=== PATIENT | female | born 1985 | race Caucasian/White ===

== ENCOUNTER 2017-01-22 14:36 | Emergency (ER) | payer SELFPAY ==
[2017-01-22 16:01] VITALS: BP 121/71
--- NOTE | 2017-01-22 16:06 | EDM.PDOC ---
ED HPI GENERAL MEDICAL PROBLEM - General Chief Complaint: ENT Problem Stated Complaint: SOMETHING STUCK IN THROAT [id number] Time Seen by Provider: 01/22/17 15:59 Source of Information: Reports: Patient History Limitations: Reports: No Limitations - History of Present Illness INITIAL COMMENTS - FREE TEXT/NARRATIVE: 31 yo white female c/o that she ate chicken @ 12 noon and feels that it is stuck. Pt. states she tried to gag w/o results and she drank 12 ounces of water w/o problem. No N&V and No Drooling Onset: Today Onset Date: 01/22/17 Onset Time: 12:00 Duration: Hour(s): Location: Reports: Other (throat) Quality: Reports: Dull, Pressure Severity: Mild Improves with: Reports: None Worsens with: Reports: None Associated Symptoms: Reports: No Other Symptoms - Related Data Allergies Allergy/AdvReac Type Severity Reaction Status Date / Time No Known Allergies Allergy Verified 01/22/17 15:09 Home Meds: Home Meds Acetaminophen [Tylenol] 650 mg PO ASDIRECTED PRN 06/29/15 [History] Ibuprofen 800 mg PO ASDIRECTED PRN 06/29/15 [History] Past Medical History HEENT History: Reports: Impaired Vision Other HEENT History: wears contacts Cardiovascular History: Reports: None Respiratory History: Reports: None Gastrointestinal History: Reports: None Genitourinary History: Reports: None [employer] History: Reports: None Musculoskeletal History: Reports: None Neurological History: Reports: None Psychiatric History: Reports: None Endocrine/Metabolic History: Reports: None Hematologic History: Reports: None Immunologic History: Reports: None Oncologic (Cancer) History: Reports: None Dermatologic History: Reports: None - Infectious Disease History Infectious Disease History: Reports: Chicken Pox - Past Surgical History Head Surgeries/Procedures: Reports: None Female Surgical History: Reports: D&C Social & Family History - Tobacco Use Smoking Status *Q: Current Some Day Smoker Years of Tobacco use: 10 Packs/Tins Daily: 0.5 Month Tobacco Last Used: may Second Hand Smoke Exposure: No - Caffeine Use Caffeine Use: Reports: Coffee, Soda - Recreational Drug Use Recreational Drug Use: No ED ROS GENERAL - Review of Systems Review Of Systems: See Below Constitutional: Reports: No Symptoms HEENT: Reports: No Symptoms Respiratory: Reports: No Symptoms Cardiovascular: Reports: No Symptoms Endocrine: Reports: No Symptoms GI/Abdominal: Reports: Other (sensation of food stuck in esophagus) : Reports: No Symptoms Musculoskeletal: Reports: No Symptoms Skin: Reports: No Symptoms Neurological: Reports: No Symptoms Psychiatric: Reports: No Symptoms Hematologic/Lymphatic: Reports: No Symptoms Immunologic: Reports: No Symptoms ED EXAM, GI/ABD - Physical Exam Exam: See Below Exam Limited By: No Limitations General Appearance: Alert, WD/WN, No Apparent Distress Eyes: Bilateral: EOMI Ears: Normal External Exam Nose: Normal Inspection Throat/Mouth: Normal Inspection Head: Atraumatic Neck: Normal Inspection Respiratory/Chest: No Respiratory Distress, Lungs Clear Cardiovascular: Normal Peripheral Pulses GI/Abdominal Exam: Normal Bowel Sounds, Soft, Non-Tender, No Organomegaly, No Distention Extremities: Normal Inspection Neurological: Alert, Oriented, CN II-XII Intact Psychiatric: Normal Affect, Normal Mood Skin Exam: Warm, Dry, Intact Lymphatic: No Adenopathy Course - Vital Signs Last Recorded V/S: Last Vital Signs Temp 36.2 C 01/22/17 16:00 Pulse 92 01/22/17 16:00 Resp 18 01/22/17 16:00 BP 121/71 01/22/17 16:00 Pulse Ox 100 01/22/17 16:00 - Orders/Labs/Meds Meds: Medications Discontinued Medications Generic Name Dose Route Start Last Admin Trade Name Krish PRN Reason Stop Dose Admin Al Hydroxide/Mg Hydroxide 30 ml 01/22/17 16:07 01/22/17 16:16 Gi Cocktail PO 01/22/17 16:08 30 ml ONETIME ONE Administration Glucagon 1 mg 01/22/17 16:58 01/22/17 17:04 Glucagen IVPUSH 01/22/17 16:59 1 mg ONETIME ONE Administration Departure - Departure Time of Disposition: 17:16 Disposition: Home, Self-Care 01 Condition: Good Clinical Impression: Food impaction of esophagus Qualifiers: Encounter type: initial encounter Qualified Code(s): T18.128A - Food in esophagus causing other injury, initial encounter - Discharge Information Forms: ED Department Discharge Additional Instructions: Continue Liquid diet only for the next 24 hours Please Drink A Carbonated Beverage F/U w/ PCP
[2017-01-22] MEDS ORDERED: GI Cocktail Oral Solution 30 ML PO ONE (16:07)
[2017-01-22] MEDS ORDERED: Glucagon,Human Recombinant 1 MG Vial IVPUSH ONE (16:58)
== END 2017-01-22 17:31 | disposition home or self-care (01) ==
LOC: DL.ED 14:36
DX: T18.128A Food in esophagus causing other injury, initial encounter (principal); F17.210 Nicotine dependence, cigarettes, uncomplicated; X58.XXXA Exposure to other specified factors, initial encounter; Y93.9 Activity, unspecified
CPT/HCPCS: 96374; 99283; A9270; J1610